=== PATIENT | female | born 1950 | race Caucasian/White ===

== ENCOUNTER 2020-02-13 15:22 | Inpatient (IN) | payer OTHER, SELFPAY ==
[~2020-02-13] VITALS: Ht 167.6 cm; Wt 67.2 kg
[2020-02-13 15:40] VITALS: BP_SYST 124
[2020-02-13 16:44] LABS: CALCIUM 8.1 mg/dL (8.4-11.0); CREATININE 0.72 mg/dL (0.55-1.30); POTASSIUM 3.8 mmol/L (3.5-5.1)
[2020-02-13 16:49] LABS: ALBUMIN 3.5 g/dL (3.4-4.8); TOTAL BILIRUBIN 0.2 mg/dL (0.0-1.0)
[2020-02-13 17:12] LABS: HEMOGLOBIN 7.2 g/dL (12.0-16.0); RED BLOOD CELL COUNT(AUTO) 2.81 MIL/uL (4.2-6.2)
[2020-02-13 17:13] LABS: LYMPHOCYTES % (AUTO) 29.1 % (20.5-51.5); MEAN CORPUSCULAR HEMOGLOBIN 26 pg (27-31); MEAN CORPUSCULAR HGB CONC 31 % (32-36); MEAN CORPUSCULAR VOLUME 82 fL (79.0-98.0); NEUTROPHILS % (AUTO) 57.3 % (40.0-70.0); PLATELET COUNT (AUTO) 304 K/uL (130-430); RED CELL DISTRIBUTION WIDTH 19.2 % (9.0-15.0)
[2020-02-13 17:14] LABS: BASOPHILS # (AUTO) 0.1 K/uL (0.0-0.2); BASOPHILS % (AUTO) 1.7 % (0.0-2.0); EOSINOPHILS # (AUTO) 0.3 K/uL (0.0-0.4); EOSINOPHILS % (AUTO) 3.5 % (0.0-4.0); LYMPHOCYTES # (AUTO) 2.3 K/uL (1.0-5.5); MONOCYTES # (AUTO) 0.7 K/uL (0.0-1.0); MONOCYTES % (AUTO) 8.4 % (1.7-9.3); NEUTROPHILS # (AUTO) 4.6 K/uL (1.8-7.7)
[2020-02-13 17:23] LABS: TOTAL IRON BIND. CAPACITY 422 ug/dL (250-450)
[2020-02-13] MEDS ORDERED: HYDR-4274 PO (18:04)
[2020-02-13] MEDS ORDERED: MELO15TA13 PO (18:04)
[2020-02-13] MEDS ORDERED: VENL75CA PO (18:04)
[2020-02-13] MEDS ORDERED: ATEN-41 PO (18:04)
[2020-02-13] MEDS ORDERED: ALEN10TA7 PO (18:04)
[2020-02-13] MEDS ORDERED: LOSA50TA3 PO (18:04)
[2020-02-13] MEDS ORDERED: SYN50 PO (18:04)
[2020-02-13] MEDS ORDERED: VENL37.510 PO (18:04)
[2020-02-14] MEDS ORDERED: ACETAMINOPHEN 325 MG TABLET PO PRN (00:15)
[2020-02-14] MEDS: PANTOPRAZOLE SODIUM 40 MG/VIAL (PROTONIX) IVP SCH ×3 (01:15→21:43)
[2020-02-14 01:34] VITALS: BP_SYST 127
[2020-02-14] MEDS: MORPHINE 2 MG/ML INJ. SYRINGE IVP PRN ×4 (02:11→15:50)
[2020-02-14] MEDS: LEVOTHYROXINE SODIUM 0.05 MG TABLET PO SCH (06:07)
[2020-02-14 07:19] LABS: BASOPHILS # (AUTO) 0.1 K/uL (0.0-0.2); BASOPHILS % (AUTO) 1.3 % (0.0-2.0); EOSINOPHILS # (AUTO) 0.3 K/uL (0.0-0.4); LYMPHOCYTES # (AUTO) 2.1 K/uL (1.0-5.5); LYMPHOCYTES % (AUTO) 35.8 % (20.5-51.5); MEAN CORPUSCULAR HEMOGLOBIN 26 pg (27-31); MEAN CORPUSCULAR HGB CONC 32 % (32-36); MEAN CORPUSCULAR VOLUME 81 fL (79.0-98.0); MONOCYTES # (AUTO) 0.5 K/uL (0.0-1.0); MONOCYTES % (AUTO) 8.2 % (1.7-9.3); NEUTROPHILS # (AUTO) 2.9 K/uL (1.8-7.7); NEUTROPHILS % (AUTO) 49.7 % (40.0-70.0); PLATELET COUNT (AUTO) 289 K/uL (130-430); RED BLOOD CELL COUNT(AUTO) 2.48 MIL/uL (4.2-6.2); RED CELL DISTRIBUTION WIDTH 18.8 % (9.0-15.0); WHITE BLOOD COUNT (AUTO) 5.8 K/uL (4.8-10.8)
[2020-02-14 07:29] LABS: HEMOGLOBIN 6.4 g/dL (12.0-16.0)
[2020-02-14 07:57] LABS: CALCIUM 8.2 mg/dL (8.4-11.0); CREATININE 0.59 mg/dL (0.55-1.30); TOTAL BILIRUBIN 0.1 mg/dL (0.0-1.0)
[2020-02-14 08:00] VITALS: BP_SYST 128
[2020-02-14] MEDS: ATENOLOL 25 MG TABLET(TENORMIN) PO SCH (09:00)
[2020-02-14] MEDS: LOSARTAN POTASSIUM 50 MG TABLET (COZAAR) PO SCH (09:00)
[2020-02-14] MEDS: Effexor 37.5 MG TAB PO SCH (09:18)
[2020-02-14 11:31] VITALS: BP_SYST 109
[2020-02-14 15:38] VITALS: BP_SYST 115
[2020-02-14 19:11] VITALS: BP_SYST 128
[2020-02-14 19:49] LABS: BASOPHILS # (AUTO) 0.1 K/uL (0.0-0.2); BASOPHILS % (AUTO) 1.3 % (0.0-2.0); EOSINOPHILS # (AUTO) 0.1 K/uL (0.0-0.4); EOSINOPHILS % (AUTO) 1.9 % (0.0-4.0); HEMOGLOBIN 7.2 g/dL (12.0-16.0); LYMPHOCYTES # (AUTO) 1.5 K/uL (1.0-5.5); MEAN CORPUSCULAR HEMOGLOBIN 26 pg (27-31); MEAN CORPUSCULAR HGB CONC 31 % (32-36); MONOCYTES # (AUTO) 0.5 K/uL (0.0-1.0); MONOCYTES % (AUTO) 8.6 % (1.7-9.3); NEUTROPHILS # (AUTO) 3.8 K/uL (1.8-7.7); NEUTROPHILS % (AUTO) 63.2 % (40.0-70.0); PLATELET COUNT (AUTO) 270 K/uL (130-430); RED BLOOD CELL COUNT(AUTO) 2.75 MIL/uL (4.2-6.2); RED CELL DISTRIBUTION WIDTH 18.6 % (9.0-15.0)
[2020-02-14 19:52] LABS: MEAN CORPUSCULAR VOLUME 84 fL (79.0-98.0)
[2020-02-14 20:00] VITALS: BP_SYST 128
[2020-02-15] VITALS: BP_SYST 144
[2020-02-15 00:25] VITALS: BP_SYST 134
[2020-02-15] MEDS: MORPHINE 2 MG/ML INJ. SYRINGE IVP PRN ×4 (05:02→22:40)
[2020-02-15] MEDS: LEVOTHYROXINE SODIUM 0.05 MG TABLET PO SCH (06:47)
[2020-02-15 07:55] VITALS: BP_SYST 123
[2020-02-15] MEDS: LOSARTAN POTASSIUM 50 MG TABLET (COZAAR) PO SCH (08:33)
[2020-02-15] MEDS: ATENOLOL 25 MG TABLET(TENORMIN) PO SCH (08:34)
[2020-02-15] MEDS: PANTOPRAZOLE SODIUM 40 MG/VIAL (PROTONIX) IVP SCH ×2 (08:39→20:27)
[2020-02-15] MEDS: Effexor 37.5 MG TAB PO SCH (08:40)
[2020-02-15 12:48] VITALS: BP_SYST 126
[2020-02-15 16:40] VITALS: BP_SYST 121
[2020-02-15] MEDS ORDERED: BISACODYL 5 MG TABLET.DR (DULCOLAX) PO ONE (18:00)
[2020-02-15] MEDS ORDERED: GOLYTELY / COLYTE SOLUTION 4 LITERS PO ONE (18:00)
[2020-02-15 20:30] VITALS: BP_SYST 163
[2020-02-15] MEDS ORDERED: GOLYTELY / COLYTE SOLUTION 4 LITERS ONE (20:52)
[2020-02-16 00:55] VITALS: BP_SYST 135
[2020-02-16] MEDS: MORPHINE 2 MG/ML INJ. SYRINGE IVP PRN ×2 (05:52→11:21)
[2020-02-16] MEDS: LEVOTHYROXINE SODIUM 0.05 MG TABLET PO SCH (06:28)
[2020-02-16] MEDS ORDERED: SIMETHICONE 40 MG/0.6 ML ML ONE (07:37)
[2020-02-16 08:00] VITALS: BP_SYST 110
[2020-02-16] MEDS: fentaNYL CITRATE/PF 100 MCG/2 ML AMP ONE ×4 (08:12→08:32)
[2020-02-16] MEDS: MIDAZOLAM HCL 5 MG/5 ML VIAL ONE ×5 (08:12→08:27)
[2020-02-16] MEDS ORDERED: BENZOCAINE 20% 0.5mL UD SPRAY MM ONE (08:31)
[2020-02-16] MEDS ORDERED: PRO40 PO (09:16)
[2020-02-16 10:26] LABS: BASOPHILS # (AUTO) 0.1 K/uL (0.0-0.2); BASOPHILS % (AUTO) 0.9 % (0.0-2.0); EOSINOPHILS # (AUTO) 0.3 K/uL (0.0-0.4); EOSINOPHILS % (AUTO) 4.4 % (0.0-4.0); HEMATOCRIT 29.7 % (36-48); HEMOGLOBIN 9.5 g/dL (12.0-16.0); LYMPHOCYTES # (AUTO) 1.3 K/uL (1.0-5.5); LYMPHOCYTES % (AUTO) 19.9 % (20.5-51.5); MEAN CORPUSCULAR HEMOGLOBIN 27 pg (27-31); MEAN CORPUSCULAR HGB CONC 32 % (32-36); MEAN CORPUSCULAR VOLUME 83 fL (79.0-98.0); MONOCYTES # (AUTO) 0.6 K/uL (0.0-1.0); MONOCYTES % (AUTO) 8.6 % (1.7-9.3); NEUTROPHILS # (AUTO) 4.3 K/uL (1.8-7.7); NEUTROPHILS % (AUTO) 66.2 % (40.0-70.0); PLATELET COUNT (AUTO) 308 K/uL (130-430); RED BLOOD CELL COUNT(AUTO) 3.56 MIL/uL (4.2-6.2); RED CELL DISTRIBUTION WIDTH 19.8 % (9.0-15.0); WHITE BLOOD COUNT (AUTO) 6.5 K/uL (4.8-10.8)
[2020-02-16 10:38] LABS: CALCIUM 8.3 mg/dL (8.4-11.0); CREATININE 0.58 mg/dL (0.55-1.30)
[2020-02-16] MEDS: PANTOPRAZOLE SODIUM 40 MG/VIAL (PROTONIX) IVP SCH (11:06)
[2020-02-16] MEDS: ATENOLOL 25 MG TABLET(TENORMIN) PO SCH (11:07)
[2020-02-16] MEDS: LOSARTAN POTASSIUM 50 MG TABLET (COZAAR) PO SCH (11:08)
[2020-02-16 12:00] VITALS: BP_SYST 125
[2020-02-16 12:12] VITALS: BP_SYST 125
[2020-02-16 12:38] VITALS: BP_SYST 125
== END 2020-02-16 12:58 | disposition home or self-care (01) | DRG 812 ==
LOC: SED 15:22 → STU 20:08 → SMU 02-15 14:51
PROVIDERS: ADMIT Internal Medicine Hospice and Palliative Medicine; ATTEND Internal Medicine Hospice and Palliative Medicine
PROC: 30233N1 Transfusion of Nonautologous Red Blood Cells into Peripheral Vein, Percutaneous Approach (ICD-10-PCS; principal; 2020-02-14)
PROC: 0DJD8ZZ Inspection of Lower Intestinal Tract, Via Natural or Artificial Opening Endoscopic (ICD-10-PCS; 2020-02-16)
PROC: 0DB68ZX Excision of Stomach, Via Natural or Artificial Opening Endoscopic, Diagnostic (ICD-10-PCS; 2020-02-16 08:00)
DX: D50.9 Iron deficiency anemia, unspecified (principal); K31.5 Obstruction of duodenum; K21.9 Gastro-esophageal reflux disease without esophagitis; R13.10 Dysphagia, unspecified; I10 Essential (primary) hypertension; E03.9 Hypothyroidism, unspecified; K64.8 Other hemorrhoids; K83.8 Other specified diseases of biliary tract; K29.70 Gastritis, unspecified, without bleeding; K26.9 Duodenal ulcer, unspecified as acute or chronic, without hemorrhage or perforation; K57.30 Diverticulosis of large intestine without perforation or abscess without bleeding; Z87.11 Personal history of peptic ulcer disease; Z79.899 Other long term (current) drug therapy; Z03.818 Encounter for observation for suspected exposure to other biological agents ruled out
CPT/HCPCS: 36415; 36600; 43239; 45378; 71045; 71250-TC; 74181; 76700-TC; 80048; 80053; 82728; 82803-TC; 83540-TC; 83550-TC; 83615-TC; 85025; 86301; 86886; 86900; 86901; 86920; 88305; 88312; 88313; 96374; 99285; C9113; G0378; J2250; J2270; J3010; J7030; P9021; U0003-CS

== ENCOUNTER 2023-11-29 14:07 | Inpatient (IN) | payer OTHER ==
[~2023-11-29] VITALS: Ht 167.6 cm; Wt 59.9 kg
[~2023-11-29 14:07] MED LIST: ALEN10TA25 PO; ATEN-41 PO; EFF37 PO; HYDR-4274 PO; LOSA-413 PO; MELO15TA13 PO; PRO40 PO; SYN50 PO; VENL75CA PO
[2023-11-29 14:47] VITALS: BP_SYST 107; PULSE 67; RESP 18; TEMP 99.2; O2SAT 96
[2023-11-29 15:45] LABS: BASOPHILS # (AUTO) 0.1 K/uL (0.0-0.2); BASOPHILS % (AUTO) 0.7 % (0.0-2.0); EOSINOPHILS # (AUTO) 0.2 K/uL (0.0-0.4); HEMATOCRIT 33.2 % (36-48); HEMOGLOBIN 11.1 g/dL (12.0-16.0); LYMPHOCYTES # (AUTO) 1.8 K/uL (1.0-5.5); LYMPHOCYTES % (AUTO) 23.1 % (20.5-51.5); MEAN CORPUSCULAR HEMOGLOBIN 29 pg (27-31); MEAN CORPUSCULAR HGB CONC 34 % (32-36); MEAN CORPUSCULAR VOLUME 87 fL (79.0-98.0); MONOCYTES # (AUTO) 0.9 K/uL (0.0-1.0); MONOCYTES % (AUTO) 11.5 % (1.7-9.3); NEUTROPHILS % (AUTO) 62.7 % (40.0-70.0); PLATELET COUNT (AUTO) 217 K/uL (130-430); RED CELL DISTRIBUTION WIDTH 16.1 % (9.0-15.0); WHITE BLOOD COUNT (AUTO) 7.9 K/uL (4.8-10.8)
[2023-11-29 15:47] LABS: ERYTHROCYTE SEDIMENTATION RATE 67 MM/HR (0-20)
[2023-11-29] MEDS: PIPERACILLIN/TAZO 3.375 GM in NS 50 ML IV ONE (16:30)
[2023-11-29] MEDS ORDERED: MIRT-91 PO (16:31)
[2023-11-29] MEDS ORDERED: VENL150C53 PO (16:31)
[2023-11-29] MEDS ORDERED: PIPERACILLIN/TAZOBACTAM 3.375 GM/VIAL (ZOSYN) IV ONE (19:10)
[2023-11-29] MEDS: HYDROcodone/ACETAMIN 5-325 MG TAB (NORCO/ VICODIN) PO PRN (19:26)
[2023-11-29 22:04] VITALS: BP_SYST 123; PULSE 76; RESP 18; TEMP 99.7
[2023-11-29] MEDS: ceFAZolin SODIUM 1 GM in D5W 50 ML IV SCH (23:06)
[2023-11-30] VITALS (7 sets, daily range): BP systolic 142–154; PULSE 62–86; RESP 17–20; TEMP 98.8–102.4; O2SAT 98–100
[2023-11-30] MEDS: ACETAMINOPHEN 325 MG TABLET PO PRN (02:01)
[2023-11-30] MEDS ORDERED: NALOXONE HCL 0.4 MG/ML AMP (NARCAN) IVP PRN ×2 (12:45→19:45)
[2023-11-30] MEDS: ONDANSETRON HCL 4 MG/2 ML VIAL IVP PRN (14:24)
[2023-11-30 18:45] LABS: BILIRUBIN,URINE NEGATIVE (NEGATIVE); CLARITY/URINE CLEAR (CLEAR); COLOR,URINE YELLOW (YELLOW); GLUCOSE,URINE NEGATIVE (NEGATIVE); KETONES,URINE 1+ (NEGATIVE); LEUKOCYTE ESTERASE ,URINE NEGATIVE (NEGATIVE); NITRITE, URINE NEGATIVE (NEGATIVE); PROTEIN URINE TRACE (NEGATIVE); UROBILINOGEN,URINE 0.2 (0.2-1.0)
[2023-11-30 18:46] LABS: BLOOD, URINE TRACE (NEGATIVE)
[2023-11-30 19:18] LABS: BACTERIA,URINE RARE /HPF (None Seen)
[2023-11-30] MEDS: HYDROcodone/ACETAMIN 10-325 MG TAB PO PRN (20:36)
[2023-11-30] MEDS ORDERED: HYDROcodone/ACETAMIN 10-325 MG TAB PO SCH (21:00)
[2023-11-30] MEDS: MIRTAZAPINE 15 MG TABLET PO SCH (22:07)
[2023-11-30] MEDS: LEVOTHYROXINE SODIUM 0.05 MG TABLET PO ONE (22:07)
[2023-11-30] MEDS: PANTOPRAZOLE SODIUM 40 MG TAB PO SCH (22:07)
[2023-12-01] VITALS (7 sets, daily range): BP systolic 113–147; PULSE 79–97; RESP 16–20; TEMP 96.8–100.2; O2SAT 93–99
[2023-12-01 05:33] LABS: BASOPHILS % (AUTO) 0.7 % (0.0-2.0); EOSINOPHILS # (AUTO) 0.2 K/uL (0.0-0.4); EOSINOPHILS % (AUTO) 3.1 % (0.0-4.0); HEMATOCRIT 34.7 % (36-48); HEMOGLOBIN 11.7 g/dL (12.0-16.0); LYMPHOCYTES # (AUTO) 1.3 K/uL (1.0-5.5); LYMPHOCYTES % (AUTO) 26.1 % (20.5-51.5); MEAN CORPUSCULAR HEMOGLOBIN 30 pg (27-31); MEAN CORPUSCULAR HGB CONC 34 % (32-36); MEAN CORPUSCULAR VOLUME 88 fL (79.0-98.0); MONOCYTES # (AUTO) 0.7 K/uL (0.0-1.0); MONOCYTES % (AUTO) 14.2 % (1.7-9.3); NEUTROPHILS # (AUTO) 2.9 K/uL (1.8-7.7); NEUTROPHILS % (AUTO) 55.9 % (40.0-70.0); PLATELET COUNT (AUTO) 227 K/uL (130-430); RED BLOOD CELL COUNT(AUTO) 3.93 MIL/uL (4.2-6.2); RED CELL DISTRIBUTION WIDTH 15.9 % (9.0-15.0); WHITE BLOOD COUNT (AUTO) 5.1 K/uL (4.8-10.8)
[2023-12-01 05:38] LABS: INR 0.9 (0.8-1.2); PROTHROMBIN TIME 9.7 SECS (9.5-12.5)
[2023-12-01 05:41] LABS: ALANINE AMINOTRANSFERASE 25 U/L (12-78); ALBUMIN 3.3 g/dL (3.4-4.8); ANION GAP 13 (5-15); ASPARTATE AMINOTRANSFERASE 22 U/L (10-37); CALCIUM 8.2 mg/dL (8.4-11.0); CARBON DIOXIDE 24 mmol/L (23-29); CHLORIDE 100 mmol/L (98-107); CREATININE 0.69 mg/dL (0.55-1.30); GLUCOSE 121 mg/dL (74-106); SODIUM SERUM 137 mmol/L (136-145); TOTAL BILIRUBIN 0.4 mg/dL (0.0-1.0); TOTAL PROTEIN, SERUM 7.2 g/dL (6.4-8.3); UREA NITROGEN, BLOOD 10 mg/dL (8-21)
[2023-12-01] MEDS: LEVOTHYROXINE SODIUM 0.05 MG TABLET PO SCH (06:49)
[2023-12-01] MEDS: ATENOLOL 25 MG TABLET(TENORMIN) PO SCH (08:31)
[2023-12-01] MEDS: LOSARTAN POTASSIUM 50 MG TABLET (COZAAR) PO SCH (08:32)
[2023-12-01] MEDS: MELOXICAM 7.5 MG TABLET PO SCH (08:33)
[2023-12-01] MEDS: VANCOMYCIN HCL 750 MG in NS 250 ML IV SCH (15:20)
[2023-12-01] MEDS ORDERED: DEXAMETHASONE SOD PHOSPHATE 4 MG/ML VIAL ONE (16:30)
[2023-12-01] MEDS: HYDROmorphone 2 MG/ML VIAL ONE (17:09)
[2023-12-01] MEDS: ACETAMINOPHEN I.V. 1000 MG 100 ML IV ONE (17:11)
[2023-12-01] MEDS ORDERED: HYDROmorphone 1 MG/ML INJ. CARTRIDGE IVP PRN (18:45)
[2023-12-01] MEDS ORDERED: ONDANSETRON HCL 4 MG/2 ML VIAL IVP PRN (18:45)
[2023-12-01] MEDS ORDERED: MORPHINE 4 MG INJ. 4 MG/ML VIAL IVP PRN ×2 (18:45)
[2023-12-01] MEDS ORDERED: NALOXONE HCL 0.4 MG/ML AMP (NARCAN) IVP PRN (18:45)
[2023-12-01] MEDS: CEFEPIME 2 GM in D5W 100 ML IV SCH (20:54)
[2023-12-02 00:35] VITALS: BP_SYST 122; PULSE 73; RESP 16; TEMP 97.7; O2SAT 95
[2023-12-02 06:24] LABS: BASOPHILS % (AUTO) 0.5 % (0.0-2.0); EOSINOPHILS # (AUTO) 0.1 K/uL (0.0-0.4); EOSINOPHILS % (AUTO) 1.6 % (0.0-4.0); HEMATOCRIT 32.4 % (36-48); HEMOGLOBIN 10.8 g/dL (12.0-16.0); LYMPHOCYTES # (AUTO) 1.4 K/uL (1.0-5.5); LYMPHOCYTES % (AUTO) 28.1 % (20.5-51.5); MEAN CORPUSCULAR HEMOGLOBIN 30 pg (27-31); MEAN CORPUSCULAR HGB CONC 33 % (32-36); MEAN CORPUSCULAR VOLUME 89 fL (79.0-98.0); MONOCYTES # (AUTO) 0.7 K/uL (0.0-1.0); NEUTROPHILS # (AUTO) 2.9 K/uL (1.8-7.7); NEUTROPHILS % (AUTO) 56.8 % (40.0-70.0); PLATELET COUNT (AUTO) 247 K/uL (130-430); RED BLOOD CELL COUNT(AUTO) 3.66 MIL/uL (4.2-6.2); RED CELL DISTRIBUTION WIDTH 16.1 % (9.0-15.0); WHITE BLOOD COUNT (AUTO) 5.1 K/uL (4.8-10.8)
[2023-12-02 06:38] LABS: ANION GAP 12 (5-15); CALCIUM 8.5 mg/dL (8.4-11.0); CARBON DIOXIDE 24 mmol/L (23-29); CHLORIDE 100 mmol/L (98-107); CREATININE 0.57 mg/dL (0.55-1.30); GLUCOSE 111 mg/dL (74-106); SODIUM SERUM 136 mmol/L (136-145); UREA NITROGEN, BLOOD 8 mg/dL (8-21)
[2023-12-02 08:00] VITALS: BP_SYST 148; PULSE 83; RESP 16; TEMP 98.4; O2SAT 98
[2023-12-02] MEDS: ALENDRONATE SODIUM 35 MG TABLET PO SCH (09:40)
[2023-12-02] MEDS: Effexor XR 37.5 MG PO SCH (10:35)
[2023-12-02 15:09] VITALS: BP_SYST 109; PULSE 101; RESP 16; TEMP 98.6; O2SAT 94
[2023-12-02 19:55] VITALS: BP_SYST 102; PULSE 105; RESP 18; TEMP 98.8; O2SAT 97
[2023-12-03 07:03] LABS: BASOPHILS % (AUTO) 0.8 % (0.0-2.0); EOSINOPHILS # (AUTO) 0.3 K/uL (0.0-0.4); EOSINOPHILS % (AUTO) 6.3 % (0.0-4.0); HEMATOCRIT 33.5 % (36-48); HEMOGLOBIN 11.1 g/dL (12.0-16.0); LYMPHOCYTES # (AUTO) 1.6 K/uL (1.0-5.5); MEAN CORPUSCULAR HEMOGLOBIN 29 pg (27-31); MEAN CORPUSCULAR HGB CONC 33 % (32-36); MEAN CORPUSCULAR VOLUME 88 fL (79.0-98.0); MONOCYTES # (AUTO) 0.6 K/uL (0.0-1.0); MONOCYTES % (AUTO) 11.2 % (1.7-9.3); NEUTROPHILS # (AUTO) 2.8 K/uL (1.8-7.7); NEUTROPHILS % (AUTO) 52.7 % (40.0-70.0); PLATELET COUNT (AUTO) 289 K/uL (130-430); RED CELL DISTRIBUTION WIDTH 15.8 % (9.0-15.0); WHITE BLOOD COUNT (AUTO) 5.4 K/uL (4.8-10.8)
[2023-12-03 07:13] LABS: ERYTHROCYTE SEDIMENTATION RATE 35 MM/HR (0-20)
[2023-12-03 07:51] LABS: ANION GAP 12 (5-15); CALCIUM 8.5 mg/dL (8.4-11.0); CARBON DIOXIDE 24 mmol/L (23-29); CHLORIDE 104 mmol/L (98-107); CREATININE 0.62 mg/dL (0.55-1.30); GLUCOSE 119 mg/dL (74-106); POTASSIUM 3.8 mmol/L (3.5-5.1); SODIUM SERUM 140 mmol/L (136-145); UREA NITROGEN, BLOOD 6 mg/dL (8-21); VANCOMYCIN,TROUGH 13.7 ug/mL (10.0-20.0)
[2023-12-03 08:15] VITALS: O2SAT 98
[2023-12-03 08:30] VITALS: BP_SYST 122; PULSE 114; RESP 14; TEMP 97.7; O2SAT 99
[2023-12-03] MEDS: AMIODARONE HCL 200 MG TABLET PO SCH (09:00)
[2023-12-03] MEDS: AMIODARONE HCL 200 MG TABLET PO ONE (09:16)
[2023-12-03] MEDS: APIXABAN 2.5 MG TABLET PO SCH (09:18)
[2023-12-03 12:00] VITALS: BP_SYST 120; PULSE 107; RESP 18; TEMP 98.2; O2SAT 98
[2023-12-03 16:20] VITALS: BP_SYST 106; PULSE 75; RESP 16; TEMP 98.1; O2SAT 99
[2023-12-03 20:20] VITALS: BP_SYST 112; PULSE 84; RESP 18; TEMP 97.5; O2SAT 100
[2023-12-04 00:10] VITALS: BP_SYST 106; PULSE 102; RESP 18; TEMP 98.4; O2SAT 100
[2023-12-04 02:29] VITALS: O2SAT 100
[2023-12-04 05:54] LABS: BASOPHILS % (AUTO) 0.8 % (0.0-2.0); EOSINOPHILS # (AUTO) 0.5 K/uL (0.0-0.4); EOSINOPHILS % (AUTO) 10.4 % (0.0-4.0); HEMATOCRIT 32.9 % (36-48); HEMOGLOBIN 10.9 g/dL (12.0-16.0); LYMPHOCYTES # (AUTO) 1.3 K/uL (1.0-5.5); LYMPHOCYTES % (AUTO) 25.8 % (20.5-51.5); MEAN CORPUSCULAR HEMOGLOBIN 30 pg (27-31); MEAN CORPUSCULAR HGB CONC 33 % (32-36); MONOCYTES # (AUTO) 0.6 K/uL (0.0-1.0); MONOCYTES % (AUTO) 10.8 % (1.7-9.3); NEUTROPHILS # (AUTO) 2.7 K/uL (1.8-7.7); NEUTROPHILS % (AUTO) 52.2 % (40.0-70.0); PLATELET COUNT (AUTO) 277 K/uL (130-430); RED BLOOD CELL COUNT(AUTO) 3.68 MIL/uL (4.2-6.2); RED CELL DISTRIBUTION WIDTH 15.3 % (9.0-15.0); WHITE BLOOD COUNT (AUTO) 5.1 K/uL (4.8-10.8)
[2023-12-04 05:55] LABS: ERYTHROCYTE SEDIMENTATION RATE 71 MM/HR (0-20)
[2023-12-04 06:15] LABS: ALANINE AMINOTRANSFERASE 28 U/L (12-78); ALBUMIN 2.7 g/dL (3.4-4.8); ANION GAP 12 (5-15); ASPARTATE AMINOTRANSFERASE 21 U/L (10-37); CALCIUM 8.7 mg/dL (8.4-11.0); CARBON DIOXIDE 23 mmol/L (23-29); CHLORIDE 107 mmol/L (98-107); CREATININE 0.66 mg/dL (0.55-1.30); GLUCOSE 117 mg/dL (74-106); POTASSIUM 4.1 mmol/L (3.5-5.1); SODIUM SERUM 142 mmol/L (136-145); TOTAL BILIRUBIN 0.3 mg/dL (0.0-1.0); TOTAL PROTEIN, SERUM 6.9 g/dL (6.4-8.3); UREA NITROGEN, BLOOD 11 mg/dL (8-21)
[2023-12-04 07:59] LABS: MEAN CORPUSCULAR VOLUME 90 fL (79.0-98.0)
[2023-12-04 08:00] VITALS: BP_SYST 123; PULSE 90; RESP 16; TEMP 97.2; O2SAT 98
[2023-12-04 12:00] VITALS: BP_SYST 121; PULSE 86; RESP 18; TEMP 97.3; O2SAT 100
[2023-12-04] MEDS: ceFAZolin SODIUM 2 GM in D5W 100 ML IV SCH (13:03)
[2023-12-04 16:00] VITALS: BP_SYST 121; PULSE 86; RESP 16; TEMP 97.3; O2SAT 98
[2023-12-04 16:41] LABS: PROTHROMBIN TIME 10.5 SECS (9.5-12.5)
[2023-12-04 20:00] VITALS: BP_SYST 115; PULSE 87; RESP 18; TEMP 97.2; O2SAT 97
[2023-12-05] VITALS: BP_SYST 119; PULSE 75; RESP 18; TEMP 97.3; O2SAT 100
[2023-12-05 05:57] LABS: BASOPHILS % (AUTO) 0.9 % (0.0-2.0); EOSINOPHILS # (AUTO) 0.4 K/uL (0.0-0.4); EOSINOPHILS % (AUTO) 8.6 % (0.0-4.0); HEMATOCRIT 29.9 % (36-48); HEMOGLOBIN 9.9 g/dL (12.0-16.0); LYMPHOCYTES # (AUTO) 1.1 K/uL (1.0-5.5); LYMPHOCYTES % (AUTO) 25.3 % (20.5-51.5); MEAN CORPUSCULAR HEMOGLOBIN 30 pg (27-31); MEAN CORPUSCULAR HGB CONC 33 % (32-36); MEAN CORPUSCULAR VOLUME 89 fL (79.0-98.0); MONOCYTES # (AUTO) 0.4 K/uL (0.0-1.0); MONOCYTES % (AUTO) 9.4 % (1.7-9.3); NEUTROPHILS # (AUTO) 2.4 K/uL (1.8-7.7); NEUTROPHILS % (AUTO) 55.8 % (40.0-70.0); PLATELET COUNT (AUTO) 292 K/uL (130-430); RED BLOOD CELL COUNT(AUTO) 3.34 MIL/uL (4.2-6.2); RED CELL DISTRIBUTION WIDTH 15.7 % (9.0-15.0); WHITE BLOOD COUNT (AUTO) 4.4 K/uL (4.8-10.8)
[2023-12-05 06:16] LABS: ALANINE AMINOTRANSFERASE 24 U/L (12-78); ALBUMIN 2.7 g/dL (3.4-4.8); ANION GAP 13 (5-15); ASPARTATE AMINOTRANSFERASE 19 U/L (10-37); CALCIUM 8.7 mg/dL (8.4-11.0); CARBON DIOXIDE 24 mmol/L (23-29); CHLORIDE 105 mmol/L (98-107); CREATININE 0.67 mg/dL (0.55-1.30); GLUCOSE 113 mg/dL (74-106); SODIUM SERUM 142 mmol/L (136-145); TOTAL BILIRUBIN 0.3 mg/dL (0.0-1.0); TOTAL PROTEIN, SERUM 6.8 g/dL (6.4-8.3); UREA NITROGEN, BLOOD 10 mg/dL (8-21)
[2023-12-05 08:00] VITALS: O2SAT 97
[2023-12-05 08:17] VITALS: BP_SYST 127; PULSE 90; RESP 16; TEMP 96.8; O2SAT 97
[2023-12-05] MEDS: METOPROLOL SUCCINATE 25 MG TAB.SR.24H (TOPROL XL) PO SCH (08:59)
[2023-12-05 12:00] VITALS: BP_SYST 124; PULSE 94; RESP 16; TEMP 97.6; O2SAT 98
[2023-12-05] MEDS ORDERED: METO-304 PO (14:32)
[2023-12-05] MEDS ORDERED: AMIO200T68 PO (14:32)
[2023-12-05] MEDS ORDERED: APIX5TAB PO (14:44)
[2023-12-05 15:18] VITALS: BP_SYST 147; PULSE 94; RESP 16; TEMP 96.8; O2SAT 98
[2023-12-05 16:00] VITALS: BP_SYST 147; PULSE 94; RESP 16; TEMP 96.8; O2SAT 98
== END 2023-12-05 16:10 | disposition home health service (06) | DRG 501 ==
LOC: SED 14:07 → SMU 16:22 → OBSVTOIN 12-01 13:42 → STU 12-03 07:55
PROVIDERS: ADMIT Specialist; ATTEND Specialist
PROC: 0XP70JZ Removal of Synthetic Substitute from Left Upper Extremity, Open Approach (ICD-10-PCS; 2023-12-01)
PROC: 02HV33Z Insertion of Infusion Device into Superior Vena Cava, Percutaneous Approach (ICD-10-PCS; 2023-12-01)
PROC: 0MB40ZZ Excision of Left Elbow Bursa and Ligament, Open Approach (ICD-10-PCS; principal; 2023-12-01 16:33)
PROC: 0RBM0ZZ Excision of Left Elbow Joint, Open Approach (ICD-10-PCS; 2023-12-01 16:33)
DX: M00.9 Pyogenic arthritis, unspecified (principal); E44.1 Mild protein-calorie malnutrition; L03.114 Cellulitis of left upper limb; M71.122 Other infective bursitis, left elbow; D64.9 Anemia, unspecified; E03.9 Hypothyroidism, unspecified; G89.4 Chronic pain syndrome; I48.0 Paroxysmal atrial fibrillation; I10 Essential (primary) hypertension; K21.9 Gastro-esophageal reflux disease without esophagitis; Z79.899 Other long term (current) drug therapy; Z68.21 Body mass index [BMI] 21.0-21.9, adult
CPT/HCPCS: 36415; 71045; 73200-TC; 80048; 80053; 80202; 81000; 81001; 81015; 84550; 85025; 85610; 85651; 85730; 87040; 87070; 87075; 87081; 87186; 88300; 93005; 93306; 94070; 94760; 96365; 97116-GP; 97163-GP; 99285; A4565; G0378; J0131; J0330; J0690; J0692; J1100; J1170; J2405; J2543; J2704; J3370; J3490; J7050; J7060